=== PATIENT | female | born 1970 | race Two or more races ===

== ENCOUNTER 2017-04-18 00:58 | Emergency (ER) | payer MEDICAID ==
--- NOTE | 2017-04-18 01:28 | ED Physician Chart ---
ED Chief Complaint/HPI - Patient Information Date Seen:: 04/18/17 Time Seen:: 01:00 Chief Complaint:: CHEST PAIN History of Present Illness:: THIS IS A 46 YO FEMALE WITH CHEST PAIN THAT RADIATED FROM THE BACK AND STARTED ON WEDNESDAY. THIS HAS HAPPEN SEVERAL TIMES IN THE PAST AND HAS SOME STRESS IN HER LIFE AT THIS TIME. SHE DENIES PREVIOUS HEART PROBLEMS, SHE DOES NOT SMOKE OR DRINK. SHE DENIES HAVING DIABETES AND HYPERTENSION. SHE DENIES HAVING ELEVATED CHOLESTEROL. SHE DENIES HAVING ANY OLD OR RECENT BACK OR CHEST TRAUMA. THE PAIN IS 4/10. Allergies:: Allergies Allergy/AdvReac Type Severity Reaction Status Date / Time No Known Allergies Allergy Verified 04/18/17 01:12 Vitals:: Vital Signs - 8 hr 04/18/17 00:58 Temp 97.9 F HR 70 RR 18 BP 114/51 O2 Sat % 99 Historian:: Patient Review:: Nurse's Note Reviewed, Old Chart Reviewed ED Review of Systems - Review of Systems General/Constitutional: No fever, No chills, No weight loss, No weakness, No diaphoresis, No edema, No loss of appetite Skin: No skin lesions, No rash, No bruising Head: No headache, No light-headedness Eyes: No loss of vision, No pain, No diplopia ENT: No earache, No nasal drainage, No sore throat, No tinnitus Neck: No neck pain, No swelling, No thyromegaly, No stiffness, No mass noted Cardio Vascular: Chest pain, No palpitations, No PND, No orthopnea, No edema Pulmonary: No SOB, No cough, No sputum, No wheezing GI: No nausea, No vomiting, No diarrhea, No pain, No melena, No hematochezia, No constipation, No hematemesis G/U: No dysuria, No frequency, No hematuria Musculoskeletal: No bone or joint pain, Back pain, No muscle pain Endocrine: No polyuria, No polydipsia Psychiatric: No prior psych history, No depression, No anxiety, No suicidal ideation Hematopoietic: No bruising, No lymphadenopathy Allergic/Immuno: No urticaria, No angioedema Neurological: No syncope, No focal symptoms, No weakness, No paresthesia, No headache, No seizure, No dizziness, No confusion, No vertigo ED Past Medical History - Past Medical History Obtainable: Yes Past Medical History: Asthma/COPD Family History: None Social History: Non Smoker, No Alcohol, No Drug Use Surgical History: None Psychiatricy History: None Medication: Reviewed Family Medical History - Family Member Mother History Unknown: Yes ED Physical Exam - Physical Examination General/Constitutional: Awake, Well-developed, well-nourished, Alert, No distress, GCS 15, Non-toxic appearing, Ambulatory Head: Atraumatic Eyes: Lids, conjuctiva normal, PERRL, EOMI Skin: Nl inspection, No rash, No skin lesions, No ecchymosis, Well hydrated, No lymphadenopathy ENMT: External ears, nose nl, Nasal exam nl, Lips, teeth, gums nl Neck: Nontender, Full ROM w/o pain, No JVD, No nuchal rigidity, No bruit, No mass, No stridor Respiratory: Nl effort/Exclusion, Clear to Auscultation, No Wheeze/Rhonchi/Rales Cardio Vascular: RRR, No murmur, gallop, rubs, NL S1 S2 GI: No tenderness/rebounding/guarding, No organomegaly, No hernia, Normal BS's, Nondistended, No mass/bruits, No McBurney tenderness : No CVA tenderness Extremities: No tenderness or effusion, Full ROM, normal strength in all extremities, No edema, Normal digits & nails Neuro/Psych: Alert/oriented, DTR's symmetric, Normal sensory exam, Normal motor strength, Judgement/insight normal, Mood normal, Normal gait, No focal deficits Misc: Normal back, No paraspinal tenderness ED Labs/Radiology/EKG Results - Lab Results Results: Abnormal Lab Results 04/18/17 04/18/17 04/18/17 01:19 01:19 01:19 WBC 6.0 RBC 4.18 Hgb 12.5 Hct 36.7 L MCV 87.8 MCH 29.9 MCHC Differential 34.1 RDW 12.4 Plt Count 301 MPV 7.0 Neutrophils % 48.0 Lymphocytes % 38.3 Monocytes % 6.0 Eosinophils % 6.6 H Basophils % 1.1 Sodium 137 Potassium 3.2 L Chloride 105 Carbon Dioxide 27.6 Anion Gap 7.6 BUN 26 H Creatinine 0.6 Est GFR ( Amer) > 60.0 Est GFR (Non-Af Amer) > 60.0 BUN/Creatinine Ratio 43.3 Glucose 123 H Calcium 9.2 Total Bilirubin 0.3 AST 19 ALT 16 Alkaline Phosphatase 70 Creatine Kinase 64 CK-MB (CK-2) Troponin I < 0.01 L Total Protein 7.1 Albumin 4.1 Globulin 3.0 Albumin/Globulin Ratio 1.4 Urine Source Urine Color Urine Clarity Urine pH Ur Specific Ione Urine Protein Urine Glucose (UA) Urine Ketones Urine Blood Urine Nitrate Urine Bilirubin Urine Urobilinogen Ur Leukocyte Esterase Urine RBC Urine WBC Ur Epithelial Cells Urine Bacteria 04/18/17 04/18/17 01:19 01:45 WBC RBC Hgb Hct MCV MCH MCHC Differential RDW Plt Count MPV Neutrophils % Lymphocytes % Monocytes % Eosinophils % Basophils % Sodium Potassium Chloride Carbon Dioxide Anion Gap BUN Creatinine Est GFR ( Amer) Est GFR (Non-Af Amer) BUN/Creatinine Ratio Glucose Calcium Total Bilirubin AST ALT Alkaline Phosphatase Creatine Kinase CK-MB (CK-2) 1.8 Troponin I Total Protein Albumin Globulin Albumin/Globulin Ratio Urine Source RANDOM Urine Color YELLOW Urine Clarity HAZY Urine pH 6.0 Ur Specific Ione 1.025 Urine Protein NEGATIVE Urine Glucose (UA) NEGATIVE Urine Ketones NEGATIVE Urine Blood NEGATIVE Urine Nitrate NEGATIVE Urine Bilirubin NEGATIVE Urine Urobilinogen 0.2 Ur Leukocyte Esterase NEGATIVE Urine RBC 0-2 Urine WBC 0-2 Ur Epithelial Cells FEW Urine Bacteria NONE SEEN - Radiology Results Results: CHEST X-RAY = NAD - EKG Interpretations EKG Time:: 00:55 Rate & Rhythm: RATE =68, NSR, RIGHT AXIS, NO ECTOPY NOTED [place]: RIGHT ED Assessment - Assessment General Assessment: ATYPICAL CHEST PAIN ED Septic Shock - . Is Septic Shock (SBP<90, OR Lactate>4 mmol\L) present?: No - <6hrs of presentation: Vital Signs: Vital Signs - 8 hr 04/18/17 00:58 Temp 97.9 F HR 70 RR 18 BP 114/51 O2 Sat % 99 ED Reassessment (Disposition) - Reassessment Reassessment Condition:: Improved - Diagnosis Diagnosis:: ATYPICAL CHEST PAIN - Aftercare/Follow up Instructions Aftercare/Follow-Up Instructions:: Counseled pt regarding lab results/diagnosis & need follow up, Refer to Discharge Instructions, Counseled pt & family regarding lab results/diagnosis & need follow up - Patient Disposition Discharge/Transfer:: Home Condition at Disposition:: Improved ED Discharge Plan - Patient Disposition Admit/Discharge/Transfer: PT DISCHARGED HOME Condition at Disposition: Improved
[2017-04-18 01:30] LABS: % BASOPHILS 1.1 % (0.0-2.0); % EOSINOPHILS 6.6 % (0.0-5.0); % LYMPHOCYTES 38.3 % (20.0-50.0); BASOPHILE ABSOLUTE 0.1 Th/cumm (0-0.2); EOSINOPHILE ABSOLUTE 0.4 Th/cmm (0.1-0.4); HEMATOCRIT 36.7 % (41.0-60); HEMOGLOBIN 12.5 gm/dL (12-16); LYMPHOCYTE ABSOLUTE 2.3 Th/cmm (1.5-3.0); MEAN CELL VOLUME 87.8 fl (81-100); MEAN CORPUSCULAR HEMOGLOBIN 29.9 pg (27.0-31.0); MEAN CORPUSCULAR HGB CONC 34.1 pg (28.0-36.0); MONOCYTE ABSOLUTE 0.4 Th/cmm (0.3-1.0); NEUTROPHILE ABSOLUTE 2.8 Th/cmm (1.8-8.0); PLATELET COUNT 301 Th/cmm (150-400); RED BLOOD COUNT 4.18 Mil/cmm (3.80-5.10); RED CELL DISTRIBUTION WIDTH 12.4 % (11.5-20.0)
[2017-04-18] MEDS ORDERED: Aspirin 81mg Chewable Tab PO STA (01:32)
[2017-04-18] MEDS ORDERED: Aspirin 81mg Chewable Tab ONE (01:38)
[2017-04-18 01:45] LABS: ALB/GLOB RATIO 1.4 (1.0-1.8); ALBUMIN 4.1 gm/dL (3.7-5.3); ALKALINE PHOSPHATASE 70 U/L (34-104); ANION GAP 7.6 (7.0-16.0); BILIRUBIN,TOTAL 0.3 mg/dL (0.3-1.0); BUN - UREA NITROGEN 26 mg/dL (7-25); CALCIUM SERUM 9.2 mg/dL (8.6-10.3); CARBON DIOXIDE 27.6 mEq/L (21.0-31.0); CHLORIDE 105 mEq/L (98-107); CREATININE - SERUM 0.6 mg/dL (0.6-1.2); CREATININE KINASE 64 U/L (30-223); GFR AFRICAN-AMERICAN > 60.0 ml/min (>90); GFR NON AFRICAN-AMERICAN > 60.0 ml/min; GLUCOSE 123 mg/dL (70-105); POTASSIUM SERUM 3.2 mEq/L (3.5-5.1); SGOT 19 U/L (13-39); SGPT/ALT 16 U/L (7-52); SODIUM SERUM 137 mEq/L (136-145); TOTAL PROTEIN,SERUM 7.1 gm/dL (6.0-8.3)
[2017-04-18 01:55] LABS: URINE MICROSCOPIC INDICATED? YES; URINE SOURCE RANDOM
[2017-04-18 01:57] LABS: URINE BILIRUBIN NEGATIVE (NEGATIVE); URINE BLOOD NEGATIVE (NEGATIVE); URINE GLUCOSE (UA) NEGATIVE (NEGATIVE); URINE KETONE NEGATIVE (NEGATIVE); URINE LEUKOCYTE ESTERASE NEGATIVE (NEGATIVE); URINE NITRATE NEGATIVE (NEGATIVE); URINE PROTEIN NEGATIVE (NEGATIVE); URINE UROBILINOGEN 0.2 E.U./dL (0.2 - 1.0)
[2017-04-18] MEDS ORDERED: Potassium Chloride Elixir 20 mEq /15 mL UDC PO ONE (01:57)
[2017-04-18 03:02] LABS: URINE CLARITY HAZY (CLEAR); URINE COLOR YELLOW
[2017-04-18 03:03] LABS: URINE BACTERIA NONE SEEN /hpf (NONE SEEN); URINE EPITHELIAL CELLS FEW /lpf (FEW); URINE RBC 0-2 /hpf (0-5); URINE WBC 0-2 /hpf (0-5)
[2017-04-18] MEDS ORDERED: Potassium Chloride 20 mEq ER Tab PO ONE (03:04)
--- NOTE | 2017-04-18 09:38 | Diagnostic Imaging Report ---
CHEST X-RAY: AP view INDICATION: pain COMPARISON: Chest x-ray 03/23/[address] of the chest on 04/08/2015 FINDINGS: Increased interstitial lung markings are seen greatest in the right lung base. No focal consolidation or effusions. Heart size is at the upper limits of normal. Osseous structures are intact. IMPRESSION: Increased interstitial lung markings greatest within the right lung base. Findings are nonspecific and may be chronic. A marginal degree of congestion is considered less likely. Please correlate with clinical findings No focal airspace consolidation identified.
== END 2017-04-18 03:21 | disposition home or self-care (01) ==
LOC: ER 00:58
DX: R07.89 Other chest pain (principal); J44.9 Chronic obstructive pulmonary disease, unspecified; J45.909 Unspecified asthma, uncomplicated
CPT/HCPCS: 36415-UA; 71045-TC; 80053-TC; 81001-TC; 82550-TC; 82553; 84484-TC; 85025-TC; 93005; Z7610

== ENCOUNTER 2017-07-15 21:02 | Emergency (ER) | payer MEDICAID ==
--- NOTE | 2017-07-15 21:50 | ED Physician Chart ---
ED Chief Complaint/HPI - Patient Information Date Seen:: 07/15/17 Time Seen:: 21:40 Chief Complaint:: shoulder pain History of Present Illness:: 1 month ago patient developed left shoulder pain then the right shoulder started to hurt. She now has bilateral shoulder pain and mid back pain. She denies trauma. No skin rash. Allergies:: Allergies Allergy/AdvReac Type Severity Reaction Status Date / Time No Known Allergies Allergy Verified 04/18/17 01:12 Vitals:: Vital Signs - 8 hr 07/15/17 21:10 Temp 97.6 F HR 72 RR 18 BP 128/62 O2 Sat % 98 Historian:: Patient ED Review of Systems - Review of Systems General/Constitutional: No fever, No chills, No weight loss, No weakness, No diaphoresis, No edema, No loss of appetite Skin: No skin lesions, No rash, No bruising Head: No headache, No light-headedness Eyes: No loss of vision, No pain, No diplopia ENT: No earache, No nasal drainage, No sore throat, No tinnitus Neck: No neck pain, No swelling, No thyromegaly, No stiffness, No mass noted Cardio Vascular: No chest pain, No palpitations, No PND, No orthopnea, No edema Pulmonary: No SOB, No cough, No sputum, No wheezing GI: No nausea, No vomiting, No diarrhea, No pain, No melena, No hematochezia, No constipation, No hematemesis G/U: No dysuria, No frequency, No hematuria Musculoskeletal: Bone or joint pain, No back pain, No muscle pain Endocrine: No polyuria, No polydipsia Psychiatric: No prior psych history, No depression, No anxiety, No suicidal ideation Hematopoietic: No bruising, No lymphadenopathy Allergic/Immuno: No urticaria, No angioedema Neurological: No syncope, No focal symptoms, No weakness, No paresthesia, No headache, No seizure, No dizziness, No confusion, No vertigo ED Past Medical History - Past Medical History Past Medical History: Asthma/COPD Family History: None Social History: Non Smoker, No Alcohol Surgical History: None Psychiatricy History: None Medication: Reviewed Family Medical History - Family Member Mother History Unknown: Yes ED Physical Exam - Physical Examination General/Constitutional: Awake, Well-developed, well-nourished, Alert, No distress, GCS 15, Non-toxic appearing, Ambulatory Head: Atraumatic Eyes: Lids, conjuctiva normal, PERRL, EOMI Skin: Nl inspection, No rash, No skin lesions, No ecchymosis, Well hydrated, No lymphadenopathy ENMT: External ears, nose nl, Nasal exam nl, Lips, teeth, gums nl Neck: Nontender, Full ROM w/o pain, No JVD, No nuchal rigidity, No bruit, No mass, No stridor Respiratory: Nl effort/Exclusion, Clear to Auscultation, No Wheeze/Rhonchi/Rales Cardio Vascular: RRR, No murmur, gallop, rubs, NL S1 S2 GI: No tenderness/rebounding/guarding, No organomegaly, No hernia, Normal BS's, Nondistended, No mass/bruits, No McBurney tenderness : No CVA tenderness Extremities: No tenderness or effusion, Full ROM, normal strength in all extremities, No edema, Normal digits & nails Other Extremities comments:: Both shoulders: No deformity or skin redness; noted to use normally Neuro/Psych: Alert/oriented, DTR's symmetric, Normal sensory exam, Normal motor strength, Judgement/insight normal, Mood normal, Normal gait, No focal deficits Misc: Normal back, No paraspinal tenderness ED Labs/Radiology/EKG Results - Radiology Results Results: X-ray left shoulder negative ED Septic Shock - . Is Septic Shock (SBP<90, OR Lactate>4 mmol\L) present?: No - <6hrs of presentation: Vital Signs: Vital Signs - 8 hr 07/15/17 21:10 Temp 97.6 F HR 72 RR 18 BP 128/62 O2 Sat % 98 ED Reassessment (Disposition) - Reassessment Reassessment:: Patient's pain improved after the Toradol 30 mg intramuscularly Reassessment Condition:: Improved - Diagnosis Diagnosis:: Musculoskeletal pain, probably arthritis - Aftercare/Follow up Instructions Medication Prescribed:: Ibuprofen 400 mg #30 to take 1 3 times a day - Patient Disposition Discharge/Transfer:: Home Condition at Disposition:: Stable
--- NOTE | 2017-07-16 08:37 | Diagnostic Imaging Report ---
Left shoulder 3 views Indication: Pain without trauma Comparison: none Findings: There is a tiny ossicle superior to the coracoid process possibly due to old injury. No evidence of an acute fracture or dislocation. Mild AC joint degenerative changes are noted. Generalized soft tissue prominence is noted likely due to body habitus. Impression: Mild degenerative changes primarily involving the AC joint. Tiny ossicle projecting adjacent to coracoid process possibly old trauma. In the setting of trauma, if clinical symptoms persist and there is continued concern for an occult fracture, follow up exams in 5-7 days is suggested.
== END 2017-07-15 23:55 | disposition home or self-care (01) ==
LOC: ER 21:02
DX: M25.512 Pain in left shoulder (principal); M25.511 Pain in right shoulder; J45.909 Unspecified asthma, uncomplicated; J44.9 Chronic obstructive pulmonary disease, unspecified
CPT/HCPCS: 99284; 96372; 73030; J1885; Z7502

== ENCOUNTER 2017-09-29 21:00 | Emergency (ER) | payer MEDICAID ==
--- NOTE | 2017-09-29 21:33 | ED Physician Chart ---
Chest Pain HPI - General Chief Complaint: Chest Pain Stated Complaint: CHEST PAIN X 4 DAYS Time Seen by Provider: 09/29/17 21:29 - Related Data Home Medications Medication Instructions Recorded Confirmed NK [No Home Meds] 09/29/17 09/29/17 Allergies Allergy/AdvReac Type Severity Reaction Status Date / Time No Known Allergies Allergy Verified 09/29/17 21:07 Family Medical History - Family Member Mother History Unknown: Yes Physical Exam - Expanded Neck Exam Neck exam focused ED: Present: paraspinal tenderness (she states her pain in chest goes to neck and upper back) Course Course Narrative: aspirin nitro Vital Signs Temp 97.8 F 09/29/17 21:00 HR 60 09/29/17 21:00 RR 18 09/29/17 21:00 BP 123/75 09/29/17 21:00 O2 Sat % 98 09/29/17 21:00 Temp 97.8 F 09/29/17 21:00 HR 60 09/29/17 21:00 RR 18 09/29/17 21:00 BP 123/75 09/29/17 21:00 O2 Sat % 98 09/29/17 21:00 Critical Care Time Critical Care Time: No Disposition Disposition: PT DISCHARGED HOME
[2017-09-29] MEDS ORDERED: NITROGLYCERIN SPRAY 4.9 GM SL STA (21:44)
[2017-09-29] MEDS ORDERED: NITROGLYCERIN SPRAY 4.9 GM SL ONE (21:46)
[2017-09-29 21:51] LABS: % BASOPHILS 0.5 % (0.0-2.0); % EOSINOPHILS 4.1 % (0.0-5.0); % MONOCYTES 6.6 % (2.0-10.0); % NEUTROPHILS 49.8 % (40.0-80.0); EOSINOPHILE ABSOLUTE 0.2 Th/cmm (0.1-0.4); HEMATOCRIT 36.2 % (41.0-60); HEMOGLOBIN 12.3 gm/dL (12-16); LYMPHOCYTE ABSOLUTE 2.1 Th/cmm (1.5-3.0); MEAN CELL VOLUME 88.2 fl (81-100); MEAN CORPUSCULAR HEMOGLOBIN 30.1 pg (27.0-31.0); MEAN CORPUSCULAR HGB CONC 34.1 pg (28.0-36.0); MONOCYTE ABSOLUTE 0.4 Th/cmm (0.3-1.0); NEUTROPHILE ABSOLUTE 2.7 Th/cmm (1.8-8.0); PLATELET COUNT 272 Th/cmm (150-400); RED BLOOD COUNT 4.11 Mil/cmm (3.80-5.10); RED CELL DISTRIBUTION WIDTH 12.1 % (11.5-20.0); WHITE BLOOD COUNT 5.4 Th/cmm (4.8-10.8)
--- NOTE | 2017-09-29 21:54 | ED Physician Chart ---
ED Chief Complaint/HPI - Patient Information Date Seen:: 09/29/17 Time Seen:: 21:20 Chief Complaint:: cp History of Present Illness:: 47 yr old female with no past med hx with mid sternal cp for 4 dayswith radaiation to neck and upper back Allergies:: Allergies Allergy/AdvReac Type Severity Reaction Status Date / Time No Known Allergies Allergy Verified 09/29/17 21:07 Vitals:: Vital Signs - 8 hr 09/29/17 21:00 Temp 97.8 F HR 60 RR 18 BP 123/75 O2 Sat % 98 ED Review of Systems - Review of Systems General/Constitutional: No fever, No chills, No weight loss, No weakness, No diaphoresis, No edema, No loss of appetite Skin: No skin lesions, No rash, No bruising Head: No headache, No light-headedness Eyes: No loss of vision, No pain, No diplopia ENT: No earache, No nasal drainage, No sore throat, No tinnitus Neck: No neck pain, No swelling, No thyromegaly, No stiffness, No mass noted Cardio Vascular: Chest pain, No chest pain, No palpitations, No PND, No orthopnea, No edema Pulmonary: No SOB, No cough, No sputum, No wheezing GI: No nausea, No vomiting, No diarrhea, No pain, No melena, No hematochezia, No constipation, No hematemesis G/U: No dysuria, No frequency, No hematuria Musculoskeletal: No bone or joint pain, No back pain, No muscle pain Endocrine: No polyuria, No polydipsia Psychiatric: No prior psych history, No depression, No anxiety, No suicidal ideation Hematopoietic: No bruising, No lymphadenopathy Allergic/Immuno: No urticaria, No angioedema Neurological: No syncope, No focal symptoms, No weakness, No paresthesia, No headache, No seizure, No dizziness, No confusion, No vertigo ED Past Medical History - Past Medical History Past Medical History: No significant medical hx Family Medical History - Family Member Mother History Unknown: Yes ED Physical Exam - Physical Examination General/Constitutional: Awake, Well-developed, well-nourished, Alert, No distress, GCS 15, Non-toxic appearing, Ambulatory Head: Atraumatic Eyes: Lids, conjuctiva normal, PERRL, EOMI Skin: Nl inspection, No rash, No skin lesions, No ecchymosis, Well hydrated, No lymphadenopathy ENMT: External ears, nose nl, Nasal exam nl, Lips, teeth, gums nl Neck: Nontender, Full ROM w/o pain, No JVD, No nuchal rigidity, No bruit, No mass, No stridor Other Neck comments:: paraspinal muscle tenderness Respiratory: Nl effort/Exclusion, Clear to Auscultation, No Wheeze/Rhonchi/Rales Cardio Vascular: RRR, No murmur, gallop, rubs, NL S1 S2 GI: No tenderness/rebounding/guarding, No organomegaly, No hernia, Normal BS's, Nondistended, No mass/bruits, No McBurney tenderness : No CVA tenderness Extremities: No tenderness or effusion, Full ROM, normal strength in all extremities, No edema, Normal digits & nails Neuro/Psych: Alert/oriented, DTR's symmetric, Normal sensory exam, Normal motor strength, Judgement/insight normal, Mood normal, Normal gait, No focal deficits Misc: Normal back, No paraspinal tenderness ED Assessment - Assessment General Assessment: cp r/o anxiety stress muscle pains s/p nitro aspirin ED Septic Shock - . Is Septic Shock (SBP<90, OR Lactate>4 mmol\L) present?: No - <6hrs of presentation: Vital Signs: Vital Signs - 8 hr 09/29/17 21:00 Temp 97.8 F HR 60 RR 18 BP 123/75 O2 Sat % 98 ED Reassessment (Disposition) - Reassessment Reassessment Condition:: Improved - Diagnosis Diagnosis:: cp - Aftercare/Follow up Instructions Aftercare/Follow-Up Instructions:: Counseled pt regarding lab results/diagnosis & need follow up - Patient Disposition Discharge/Transfer:: Home
[2017-09-29 22:08] LABS: ALB/GLOB RATIO 1.5 (1.0-1.8); ALBUMIN 4.2 gm/dL (3.7-5.3); ALKALINE PHOSPHATASE 85 U/L (34-104); ANION GAP 9.3 (7.0-16.0); BILIRUBIN,TOTAL 0.3 mg/dL (0.3-1.0); BUN - UREA NITROGEN 25 mg/dL (7-25); CALCIUM SERUM 9.3 mg/dL (8.6-10.3); CARBON DIOXIDE 26.3 mEq/L (21.0-31.0); CHLORIDE 105 mEq/L (98-107); CREATININE - SERUM 0.4 mg/dL (0.6-1.2); CREATININE KINASE 69 U/L (30-223); GFR AFRICAN-AMERICAN > 60.0 ml/min (>90); GFR NON AFRICAN-AMERICAN > 60.0 ml/min; GLUCOSE 101 mg/dL (70-105); POTASSIUM SERUM 3.6 mEq/L (3.5-5.1); SGOT 17 U/L (13-39); SGPT/ALT 14 U/L (7-52); SODIUM SERUM 137 mEq/L (136-145); TROP I 0.01 ng/mL (0.01-0.05)
[2017-09-29 22:08] LABS: URINE SOURCE CLEAN C
[2017-09-29 22:14] LABS: URINE BILIRUBIN NEGATIVE (NEGATIVE); URINE BLOOD NEGATIVE (NEGATIVE); URINE CLARITY CLEAR (CLEAR); URINE COLOR YELLOW; URINE GLUCOSE (UA) NEGATIVE (NEGATIVE); URINE KETONE NEGATIVE (NEGATIVE)
[2017-09-29 22:15] LABS: URINE LEUKOCYTE ESTERASE NEGATIVE (NEGATIVE); URINE MICROSCOPIC INDICATED? YES; URINE NITRATE NEGATIVE (NEGATIVE); URINE PROTEIN NEGATIVE (NEGATIVE); URINE UROBILINOGEN 0.2 E.U./dL (0.2 - 1.0)
[2017-09-29 22:16] LABS: URINE BACTERIA FEW /hpf (NONE SEEN); URINE EPITHELIAL CELLS FEW /lpf (FEW); URINE RBC 0-2 /hpf (0-5)
--- NOTE | 2017-09-30 08:26 | Diagnostic Imaging Report ---
Portable chest x-ray Time: 2152 History: Chest pain Allowing for portable technique the heart size is normal. No focal pulmonary parenchymal processes. No hilar or mediastinal abnormalities. Impression: No acute abnormalities.
== END 2017-09-29 23:50 | disposition home or self-care (01) ==
LOC: ER 21:00
DX: R07.89 Other chest pain (principal); R00.1 Bradycardia, unspecified; M54.6 Pain in thoracic spine
CPT/HCPCS: 36415-UA; 71045-TC; 80053-TC; 81001-TC; 81025-TC; 82550-TC; 83605; 84484-TC; 85025-TC; 93005; Z7502

== ENCOUNTER 2017-10-16 21:45 | Emergency (ER) | payer MEDICAID ==
[2017-10-16 22:17] LABS: % BASOPHILS 1.1 % (0.0-2.0); % EOSINOPHILS 3.7 % (0.0-5.0); % LYMPHOCYTES 36.9 % (20.0-50.0); % MONOCYTES 11.5 % (2.0-10.0); % NEUTROPHILS 46.8 % (40.0-80.0); BASOPHILE ABSOLUTE 0.1 Th/cumm (0-0.2); EOSINOPHILE ABSOLUTE 0.2 Th/cmm (0.1-0.4); HEMATOCRIT 36.7 % (41.0-60); HEMOGLOBIN 12.5 gm/dL (12-16); MEAN CELL VOLUME 87.9 fl (81-100); MEAN CORPUSCULAR HEMOGLOBIN 29.9 pg (27.0-31.0); MEAN PLATELET VOLUME 6.6 fl; MONOCYTE ABSOLUTE 0.6 Th/cmm (0.3-1.0); NEUTROPHILE ABSOLUTE 2.4 Th/cmm (1.8-8.0); PLATELET COUNT 294 Th/cmm (150-400); RED BLOOD COUNT 4.17 Mil/cmm (3.80-5.10); RED CELL DISTRIBUTION WIDTH 12.1 % (11.5-20.0); WHITE BLOOD COUNT 5.3 Th/cmm (4.8-10.8)
--- NOTE | 2017-10-16 22:28 | ED Physician Chart ---
ED Chief Complaint/HPI - Patient Information Date Seen:: 10/16/17 Time Seen:: 22:00 Chief Complaint:: chest congestion and cough History of Present Illness:: this is a 47 yo female who has been here several time with cough and chest pain with bradycardia. she states that when the weather started to change she has had difficulty with coughing and chest congestion. she denies fever, nausea, vomiting Allergies:: Allergies Allergy/AdvReac Type Severity Reaction Status Date / Time No Known Allergies Allergy Verified 10/16/17 22:08 Vitals:: Vital Signs - 8 hr 10/16/17 21:50 Temp 98.0 F HR 84 RR 18 BP 112/61 O2 Sat % 98 Historian:: Patient, Family Member Review:: Nurse's Note Reviewed, Old Chart Reviewed ED Review of Systems - Review of Systems General/Constitutional: No fever, No chills, No weight loss, No weakness, No diaphoresis, No edema, No loss of appetite Skin: No skin lesions, No rash, No bruising Head: No headache, No light-headedness Eyes: No loss of vision, No pain, No diplopia ENT: No earache, No nasal drainage, No sore throat, No tinnitus Neck: No neck pain, No swelling, No thyromegaly, No stiffness, No mass noted Cardio Vascular: No chest pain, No palpitations, No PND, No orthopnea, No edema Pulmonary: Cough, No sputum, Wheezing GI: No nausea, No vomiting, No diarrhea, No pain, No melena, No hematochezia, No constipation, No hematemesis G/U: No dysuria, No frequency, No hematuria Musculoskeletal: No bone or joint pain, No back pain, No muscle pain Endocrine: No polyuria, No polydipsia Psychiatric: No prior psych history, No depression, No anxiety, No suicidal ideation Hematopoietic: No bruising, No lymphadenopathy Allergic/Immuno: No urticaria, No angioedema Neurological: No syncope, No focal symptoms, No weakness, No paresthesia, No headache, No seizure, No dizziness, No confusion, No vertigo ED Past Medical History - Past Medical History Obtainable: Yes Past Medical History: Asthma/COPD Family History: None Social History: Non Smoker, No Alcohol, No Drug Use, Employed Surgical History: None Psychiatricy History: None Medication: Reviewed Family Medical History - Family Member Mother History Unknown: Yes ED Physical Exam - Physical Examination General/Constitutional: Awake, Well-developed, well-nourished, Alert, No distress, GCS 15, Non-toxic appearing, Ambulatory Head: Atraumatic Eyes: Lids, conjuctiva normal, PERRL, EOMI Skin: Nl inspection, No rash, No skin lesions, No ecchymosis, Well hydrated, No lymphadenopathy ENMT: External ears, nose nl, Nasal exam nl, Lips, teeth, gums nl Neck: Nontender, Full ROM w/o pain, No JVD, No nuchal rigidity, No bruit, No mass, No stridor Respiratory: Nl effort/Exclusion, Clear to Auscultation (congestion with ronchi heard bilaterally), No Wheeze/Rhonchi/Rales (bilateral decrease excusion of the diaphram and mild wheezing can be heard.) Cardio Vascular: RRR, No murmur, gallop, rubs, NL S1 S2 GI: No tenderness/rebounding/guarding, No organomegaly, No hernia, Normal BS's, Nondistended, No mass/bruits, No McBurney tenderness : No CVA tenderness Extremities: No tenderness or effusion, Full ROM, normal strength in all extremities, No edema, Normal digits & nails Neuro/Psych: Alert/oriented, DTR's symmetric, Normal sensory exam, Normal motor strength, Judgement/insight normal, Mood normal, Normal gait, No focal deficits Misc: Normal back, No paraspinal tenderness ED Labs/Radiology/EKG Results - Lab Results Results: Laboratory Tests 10/16/17 22:10 WBC 5.3 RBC 4.17 Hgb 12.5 Hct 36.7 L MCV 87.9 MCH 29.9 MCHC Differential 34.0 RDW 12.1 Plt Count 294 MPV 6.6 Neutrophils % 46.8 Lymphocytes % 36.9 Monocytes % 11.5 H Eosinophils % 3.7 Basophils % 1.1 - Radiology Results Results: ct scan of the chest = trace of pericardial fusion enlarged thyroid gland - EKG Interpretations EKG Time:: 22:04 Rate & Rhythm: rate = 89 sinus [place]: right Intervals: no ectopy seen ED Assessment - Assessment General Assessment: acute bronchitis ED Septic Shock - . Is Septic Shock (SBP<90, OR Lactate>4 mmol\L) present?: No - <6hrs of presentation: Vital Signs: Vital Signs - 8 hr 10/16/17 21:50 Temp 98.0 F HR 84 RR 18 BP 112/61 O2 Sat % 98 ED Reassessment (Disposition) - Reassessment Reassessment Condition:: Improved - Diagnosis Diagnosis:: acute bronchitis enlarged thyroid pericardial fusion - Aftercare/Follow up Instructions Aftercare/Follow-Up Instructions:: Counseled pt regarding lab results/diagnosis & need follow up, Refer to Discharge Instructions, Counseled pt & family regarding lab results/diagnosis & need follow up Medication Prescribed:: to see her pmd catie ....take medications as prescribed - Patient Disposition Discharge/Transfer:: Home Condition at Disposition:: Improved
[2017-10-16 22:33] LABS: ALB/GLOB RATIO 1.4 (1.0-1.8); ALBUMIN 4.1 gm/dL (3.7-5.3); ALKALINE PHOSPHATASE 85 U/L (34-104); ANION GAP 10.1 (7.0-16.0); BILIRUBIN,TOTAL 0.3 mg/dL (0.3-1.0); BUN - UREA NITROGEN 20 mg/dL (7-25); CALCIUM SERUM 9.5 mg/dL (8.6-10.3); CARBON DIOXIDE 28.2 mEq/L (21.0-31.0); CHLORIDE 105 mEq/L (98-107); CREATININE - SERUM 0.5 mg/dL (0.6-1.2); GFR AFRICAN-AMERICAN > 60.0 ml/min (>90); GFR NON AFRICAN-AMERICAN > 60.0 ml/min; GLUCOSE 119 mg/dL (70-105); POTASSIUM SERUM 3.3 mEq/L (3.5-5.1); SGOT 20 U/L (13-39); SGPT/ALT 17 U/L (7-52); SODIUM SERUM 140 mEq/L (136-145); TOTAL PROTEIN,SERUM 7.1 gm/dL (6.0-8.3)
[2017-10-16] MEDS ORDERED: Potassium Chloride Elixir 20 mEq /15 mL UDC PO ONE (22:48)
[2017-10-16] MEDS ORDERED: Potassium Chloride Elixir 20 mEq /15 mL UDC ONE (22:50)
[2017-10-16] MEDS ORDERED: Albuterol/Ipratropium Neb 3 ML AERS HHN ONE ×2 (22:51→22:57)
--- NOTE | 2017-10-17 09:43 | Diagnostic Imaging Report ---
CT Chest without IV contrast HISTORY: Cough and chest pain COMPARISON: CT chest on 04/08/2015. Technique: Axial images were obtained from the base of the neck to the upper abdomen without IV contrast. Reconstructions were made. Total DLP to 22, CTD I 6 Findings: Evaluation of the mediastinum is limited due to lack of IV contrast. There is mild prominence involving the left lobe of the thyroid gland extending inferiorly. No evidence of mediastinal lymphadenopathy. The heart size is normal. Trace pericardial fluid is noted. No evidence of an aortic aneurysm. Calcified granulomas of the right hilar region are noted. The lung fuchs demonstrate minimal atelectatic changes. No focal consolidation or pleural effusions. No evidence of a pneumothorax. There is 4 mm nodule again noted along the right major fissure region without significant change since previous examination. Mild degenerative changes of the spine are noted. 4 mm bone island of the T10 vertebral body is noted. IMPRESSION: No focal consolidation or evidence of pneumothorax Mild hypoventilatory lung changes. 4 mm nodular density along the right major fissure probably due to old infectious or inflammatory process. Similar findings were seen on prior exam. Right hilar calcifications probably related to prior granulomatous disease. Mild prominence of the left lobe of the thyroid gland. A nodule within the left lobe cannot be excluded. Short-term follow-up ultrasound is suggested.
== END 2017-10-17 00:18 | disposition home or self-care (01) ==
LOC: ER 21:45
DX: J20.9 Acute bronchitis, unspecified (principal); I31.3 Pericardial effusion (noninflammatory); E04.9 Nontoxic goiter, unspecified; J44.9 Chronic obstructive pulmonary disease, unspecified
CPT/HCPCS: 99285; 96372 ×2; 94640; 93005; 71250; 84484; 36415; 85025; 84703; 80053; J0696; J2930

== ENCOUNTER 2018-05-26 08:38 | Emergency (ER) | payer MEDICAID ==
[2018-05-26] MEDS ORDERED: Albuterol/Ipratropium Neb 3 ML AERS HHN ONE ×2 (08:52→08:58)
--- NOTE | 2018-05-26 08:58 | ED Physician Chart ---
ED Chief Complaint/HPI - Patient Information Date Seen:: 05/26/18 Time Seen:: 08:45 Chief Complaint:: cough History of Present Illness:: Patient had a cough productive of yellow sputum for last 1 week. No fever. Patient has pleuritic chest and abdominal pain when she coughs. Patient did not receive influenza vaccination this season. Allergies:: Allergies Allergy/AdvReac Type Severity Reaction Status Date / Time No Known Allergies Allergy Verified 10/16/17 22:08 Vitals:: Vital Signs - 8 hr 05/26/18 08:46 Temp 98.0 F HR 79 RR 16 BP 117/73 O2 Sat % 97 Historian:: Patient, Family Member Review:: Nurse's Note Reviewed ED Review of Systems - Review of Systems General/Constitutional: No fever, No chills Skin: No skin lesions Head: No headache Eyes: No loss of vision ENT: No earache Neck: No neck pain Cardio Vascular: No chest pain, No palpitations Pulmonary: Cough, Sputum, Wheezing GI: No nausea, No vomiting, No diarrhea Musculoskeletal: No bone or joint pain, No back pain, No muscle pain Psychiatric: No prior psych history, No depression, No anxiety Hematopoietic: No bruising Allergic/Immuno: No urticaria Neurological: No syncope, No focal symptoms ED Past Medical History - Past Medical History Past Medical History: Asthma/COPD Family History: Other (patient's children have asthma) Social History: Non Smoker, No Alcohol Surgical History: None Psychiatricy History: None Medication: Reviewed Family Medical History - Family Member Mother History Unknown: Yes ED Physical Exam - Physical Examination General/Constitutional: Awake, Well-developed, well-nourished, Alert, No distress, GCS 15, Non-toxic appearing, Ambulatory Head: Atraumatic Eyes: Lids, conjuctiva normal, PERRL, EOMI Skin: Nl inspection, No rash, No skin lesions, No ecchymosis, Well hydrated, No lymphadenopathy ENMT: External ears, nose nl, TM canals nl, Nasal exam nl, Lips, teeth, gums nl Neck: No nuchal rigidity Respiratory: Nl effort/Exclusion Other Respiratory comments:: 1/4 scattered wheezing Cardio Vascular: RRR, No murmur, gallop, rubs GI: No tenderness/rebounding/guarding, No organomegaly, No hernia Extremities: Normal digits & nails Neuro/Psych: Alert/oriented, Normal gait ED Assessment - Assessment General Assessment: Influenza A and B screen are negative so the patient has another virus for which only symptomatic treatment is indicated. Patient encouraged to get an influenza vaccination each year in October. ED Septic Shock - . Is Septic Shock (SBP<90, OR Lactate>4 mmol\L) present?: No - <6hrs of presentation: Vital Signs: Vital Signs - 8 hr 05/26/18 08:46 Temp 98.0 F HR 79 RR 16 BP 117/73 O2 Sat % 97 ED Reassessment (Disposition) - Reassessment Reassessment Condition:: Unchanged - Diagnosis Diagnosis:: Acute viral syndrome; viral bronchitis; reactive airway disease - Aftercare/Follow up Instructions Medication Prescribed:: Ventolin metered-dose inhaler to take 2 puffs every 4 hours as necessary for shortness of breath or cough and Robitussin-DM 4 ounces elixir to take 2 teaspoons 4 times a day as necessary for cough. - Patient Disposition Discharge/Transfer:: Home Condition at Disposition:: Stable, Unchanged
[2018-05-26 10:02] LABS: INF A SCREEN NEG FOR INF A; INF B SCREEN NEG FOR INF B
== END 2018-05-26 10:35 | disposition home or self-care (01) ==
LOC: ER 08:38
DX: J45.909 Unspecified asthma, uncomplicated (principal); J20.8 Acute bronchitis due to other specified organisms; B34.9 Viral infection, unspecified
CPT/HCPCS: 87804-TC; 94640; Z7502